=== PATIENT | female | born 1985 | race Caucasian/White ===

== ENCOUNTER 2018-08-10 10:26 | Emergency (ER) | payer SELFPAY ==
[2018-08-10] MEDS ORDERED: METOCLOPRAMIDE 10 MG/2mL INJ ONE (11:12)
[2018-08-10] MEDS ORDERED: KETOROLAC 30 MG/ML INJ ONE (11:12)
[2018-08-10] MEDS ORDERED: DIPHENHYDRAMINE 50 MG/ML VIAL ONE (11:12)
[2018-08-10] MEDS ORDERED: NA CHLORIDE 0.9% 1,000 ML ONE (11:13)
--- NOTE | 2018-08-10 11:41 | ER ---
Nurse's Notes [facility] Name: Mag Fang Age: 33 yrs Sex: Female : 1985 Arrival Date: 08/10/2018 Time: 10:28 Bed 18 Private MD: Diagnosis: Headache Presentation: 08/10 10:37 Presenting complaint: Patient states: i started with a headache yesterday and it has tw2 just gotten worse, migraine and then this morning i started vomiting, x4 and dry heaving which makes my head hurt worse. Transition of care: patient was not received from another setting of care. Onset of symptoms was August 10, 2018. Risk Assessment: Do you want to hurt yourself or someone else? Patient reports no desire to harm self or others. Initial Sepsis Screen: Does the patient meet any 2 criteria? No. Patient's initial sepsis screen is negative. Does the patient have a suspected source of infection? No. Patient's initial sepsis screen is negative. Care prior to arrival: None. 10:37 Method Of Arrival: Ambulatory tw2 10:37 Acuity: GAMAL 3 tw2 Triage Assessment: 10:49 Headache History: The patient has had previous headaches and this one is similar to tw2 previous episodes. General: Appears in no apparent distress. Pain: Pain currently is 10 out of 10 on a pain scale. Pain began this morning Also complains of photophobia. 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 - Social history:: Smoking status: Patient uses tobacco products, smokes one pack cigarettes per day. - Ebola Screening: : Patient denies travel to an Ebola-affected area in the 21 days before illness onset. Screenin:30 Abuse screen: Denies threats or abuse. Nutritional screening: No deficits noted. tw2 Tuberculosis screening: No symptoms or risk factors identified. Fall Risk None identified. Assessment: 10:48 General: Appears in no apparent distress. Behavior is calm, cooperative, appropriate tw2 for age. Pain: Complains of pain in forehead, right protestant and left protestant. Neuro: Level of Consciousness is awake, alert, obeys commands, Oriented to person, place, time, situation, Reports dizziness, headache photophobia. Cardiovascular: Denies chest pain, shortness of breath, Heart tones S1 S2 Patient's skin is warm and dry. Respiratory: Airway is patent Respiratory effort is even, unlabored, Respiratory pattern is regular, symmetrical, Breath sounds are clear bilaterally. GI: Reports nausea, vomiting. : No signs and/or symptoms were reported regarding the genitourinary system. EENT: No signs and/or symptoms were reported regarding the EENT system. Derm: No signs and/or symptoms reported regarding the dermatologic system. Musculoskeletal: Circulation, motion, and sensation intact. Range of motion: intact in all extremities. 11:20 Reassessment: Patient appears in no apparent distress at this time. No changes from tw2 previously documented assessment. Patient and/or family updated on plan of care and expected duration. Pain level reassessed. Patient is alert, oriented x 3, equal unlabored respirations, skin warm/dry/pink. 12:35 Reassessment: Patient appears in no apparent distress at this time. Patient and/or tw2 family updated on plan of care and expected duration. Pain level reassessed. Patient is alert, oriented x 3, equal unlabored respirations, skin warm/dry/pink. Patient states feeling better. Patient states symptoms have improved. Vital Signs: 10:47 BP 184 / 115; Pulse 78; Resp 18; Temp 98.8(O); Pulse Ox 100% on R/A; Pain 10/10; tw2 12:29 BP 181 / 121; Pulse 61; Resp 17; Pulse Ox 99% on R/A; tw2 [place] Coma Score: 11:41 Eye Response: spontaneous(4). Verbal Response: oriented(5). Motor Response: obeys gs commands(6). Total: 15. ED Course: 10:28 Patient arrived in ED. as 10:38 Call light in reach. Side rails up X 1. Pulse ox on. NIBP on. tw2 10:41 Fausto Hightower MD is Attending Physician. gs 10:45 Lauren Macedo RN is Primary Nurse. tw2 10:46 Triage completed. tw2 10:48 Arm band placed on. tw2 11:00 Missed attempt(s): 22 gauge in right antecubital area. Bleeding controlled, band aid tw2 applied, catheter tip intact. Inserted saline lock: 24 gauge in right hand, using aseptic technique. 11:41 Awaiting: completion of IV fluids PRIOR to discharge. tw2 12:35 No provider procedures requiring assistance completed. IV discontinued, intact, tw2 bleeding controlled, No redness/swelling at site. Pressure dressing applied. Administered Medications: 11:12 Drug: Reglan 10 mg Route: IVP; Site: right hand; tw2 12:34 Follow up: Response: No adverse reaction tw2 11:14 Drug: TORadol 30 mg Route: IVP; Site: right hand; tw2 12:34 Follow up: Response: No adverse reaction; Pain is decreased tw2 11:16 Drug: Benadryl 25 mg Route: IVP; Site: right hand; tw2 12:34 Follow up: Response: No adverse reaction tw2 11:17 Drug: NS 0.9% 1000 ml Route: IV; Rate: 1 bolus; Site: right hand; tw2 12:34 Follow up: Response: No adverse reaction; IV Intake: 1000ml tw2 12:35 Follow up: Response: No adverse reaction; IV Status: Completed infusion tw2 Intake: 12:34 IV: 1000ml; Total: 1000ml. tw2 Outcome: 11:40 Discharge ordered by . gs 12:36 Discharged to home ambulatory, with family. tw2 12:36 Condition: stable 12:36 Discharge instructions given to patient, family, Instructed on discharge instructions, follow up and referral plans. no drinking with medication, no driving heavy equipment, medication usage, Demonstrated understanding of instructions, follow-up care, medications, Prescriptions given X 1. 12:36 Patient left the ED. tw2 Signatures: Richa Vilchis Tara, RN RN tw2 Fausto Hightower MD MD Corrections: (The following items were deleted from the chart) 12:35 12:29 Reassessment: Patient appears in no apparent distress at this time. No changes tw2 from previously documented assessment. Patient and/or family updated on plan of care and expected duration. Pain level reassessed. Patient is alert, oriented x 3, equal unlabored respirations, skin warm/dry/pink. tw2
--- NOTE | 2018-08-10 11:41 | EDPHYS ---
Physician Documentation [facility] Name: Mag Fang Age: 33 yrs Sex: Female : 1985 Arrival Date: 08/10/2018 Time: 10:28 Bed 18 Private MD: ED Physician Fausto Hightower HPI: 08/10 11:38 This 33 yrs old Female presents to ER via Ambulatory with complaints of gs Headache, Vomiting. 11:38 The patient complains of pain to the forehead. The patient describes the headache as gs throbbing. Onset: The symptoms/episode began/occurred gradually. 11:39 Onset: The symptoms/episode began/occurred yesterday. Associated signs and symptoms: gs Pertinent positives: vomiting, Pertinent negatives: altered mental status, dizziness. Severity of symptoms: At its worst the pain was moderate, in the emergency department the pain is unchanged. Headache History: The patient has had previous headaches and this one is similar to previous episodes. The symptoms are alleviated by nothing. the symptoms are aggravated by nothing. The patient has experienced similar episodes in the past, multiple times. 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 - Social history:: Smoking status: Patient uses tobacco products, smokes one pack cigarettes per day. - Ebola Screening: : Patient denies travel to an Ebola-affected area in the 21 days before illness onset. ROS: 11:39 All other systems are negative. gs Exam: 11:39 Head/Face: Normocephalic, atraumatic. Eyes: Pupils equal round and reactive to light, gs extra-ocular motions intact. Lids and lashes normal. Conjunctiva and sclera are non-icteric and not injected. Cornea within normal limits. Periorbital areas with no swelling, redness, or edema. ENT: Nares patent. No nasal discharge, no septal abnormalities noted. Tympanic membranes are normal and external auditory canals are clear. Oropharynx with no redness, swelling, or masses, exudates, or evidence of obstruction, uvula midline. Mucous membranes moist. Neck: Trachea midline, no thyromegaly or masses palpated, and no cervical lymphadenopathy. Supple, full range of motion without nuchal rigidity, or vertebral point tenderness. No Meningismus. Chest/axilla: Normal chest wall appearance and motion. Nontender with no deformity. No lesions are appreciated. Cardiovascular: Regular rate and rhythm with a normal S1 and S2. No gallops, murmurs, or rubs. Normal PMI, no JVD. No pulse deficits. Respiratory: Lungs have equal breath sounds bilaterally, clear to auscultation and percussion. No rales, rhonchi or wheezes noted. No increased work of breathing, no retractions or nasal flaring. Abdomen/GI: Soft, non-tender, with normal bowel sounds. No distension or tympany. No guarding or rebound. No evidence of tenderness throughout. Back: No spinal tenderness. No costovertebral tenderness. Full range of motion. Skin: Warm, dry with normal turgor. Normal color with no rashes, no lesions, and no evidence of cellulitis. MS/ Extremity: Pulses equal, no cyanosis. Neurovascular intact. Full, normal range of motion. Neuro: Awake and alert, GCS 15, oriented to person, place, time, and situation. Cranial nerves II-XII grossly intact. Motor strength 5/5 in all extremities. Sensory grossly intact. Cerebellar exam normal. Normal gait. 11:39 Constitutional: The patient appears alert, awake. 11:39 Constitutional: The patient appears odor marijuana Vital Signs: 10:47 BP 184 / 115; Pulse 78; Resp 18; Temp 98.8(O); Pulse Ox 100% on R/A; Pain 10/10; tw2 12:29 BP 181 / 121; Pulse 61; Resp 17; Pulse Ox 99% on R/A; tw2 [place] Coma Score: 11:41 Eye Response: spontaneous(4). Verbal Response: oriented(5). Motor Response: obeys commands(6). Total: 15. MDM: 10:51 Patient medically screened. 11:39 Differential diagnosis: migraine, tension headache, vasomotor headache. Data reviewed: vital signs, nurses notes. Response to treatment: the patient's symptoms have markedly improved after treatment, and as a result, I will discharge patient. 11:41 Counseling: I had a detailed discussion with the patient and/or guardian regarding: the gs historical points, exam findings, and any diagnostic results supporting the discharge/admit diagnosis, the presence of at least one elevated blood pressure reading (>120/80) during this emergency department visit, the need for outpatient follow up. Special discussion: I have referred the patient to see his PCP for further evaluation of high blood pressure. 08/10 10:59 Order name: IV Start; Complete Time: tw2 Administered Medications: 11:12 Drug: Reglan 10 mg Route: IVP; Site: right hand; tw2 12:34 Follow up: Response: No adverse reaction tw2 11:14 Drug: TORadol 30 mg Route: IVP; Site: right hand; tw2 12:34 Follow up: Response: No adverse reaction; Pain is decreased tw2 11:16 Drug: Benadryl 25 mg Route: IVP; Site: right hand; tw2 12:34 Follow up: Response: No adverse reaction tw2 11:17 Drug: NS 0.9% 1000 ml Route: IV; Rate: 1 bolus; Site: right hand; tw2 12:34 Follow up: Response: No adverse reaction; IV Intake: 1000ml tw2 12:35 Follow up: Response: No adverse reaction; IV Status: Completed infusion tw2 Disposition: 08/10/18 11:40 Discharged to Home. Impression: Headache. - Condition is Stable. - Discharge Instructions: Migraine Headache, Managing Your Hypertension. - Prescriptions for Fiorinal 50- 325-40 mg Oral Capsule - take 1 capsule by ORAL route every 4 hours As needed - not to exceed 6 capsules per day; 12 capsule. - Work release form, Medication Reconciliation Form, Thank You Letter, Antibiotic Education, Prescription Opioid Use form. - Follow up: Private Physician; When: 2 - 3 days; Reason: Re-evaluation by your physician. Signatures: Lauren Macedo RN RN tw2 Fausto Hightower MD MD Corrections: (The following items were deleted from the chart) 12:36 11:40 08/10/2018 11:40 Discharged to Home. Impression: Headache. Condition is Stable. tw2 Forms are Work release form, Medication Reconciliation Form, Thank You Letter, Antibiotic Education, Prescription Opioid Use. Follow up: Private Physician; When: 2 - 3 days; Reason: Re-evaluation by your physician. gs
== END 2018-08-10 12:36 | disposition home or self-care (01) ==
LOC: ER 10:26
DX: R51 Headache (principal); F17.210 Nicotine dependence, cigarettes, uncomplicated
CPT/HCPCS: 96361; 96374; 96375; 99284; J2765; J7030